=== PATIENT | female | born 1975 | race Caucasian/White ===

== ENCOUNTER 2016-11-14 11:13 | Emergency (ER) | payer MEDICAID | END 2016-11-14 16:15 | disposition home or self-care (01) | LOC: D.ER 11:13 | DX: N76.4 Abscess of vulva (principal); M54.9 Dorsalgia, unspecified; M54.5 Low back pain; I10 Essential (primary) hypertension; M19.90 Unspecified osteoarthritis, unspecified site ==

== ENCOUNTER 2017-03-06 08:16 | Emergency (ER) | payer MEDICAID | END 2017-03-06 09:56 | disposition home or self-care (01) | LOC: D.ER 08:16 | DX: H92.01 Otalgia, right ear (principal); I10 Essential (primary) hypertension; M54.5 Low back pain; M51.26 Other intervertebral disc displacement, lumbar region ==

== ENCOUNTER 2017-04-01 11:25 | Emergency (ER) | payer OTHER ==
[2017-04-01 14:07] LABS: APPEARANCE CLOUDY (CLEAR); BILIRUBIN NEGATIVE (NEGATIVE); COLOR DK YELLOW (YELLOW); GLUCOSE NEGATIVE (NEGATIVE); KETONE LARGE mg/dL (NEGATIVE); LEUKOCYTE ESTERASE 2+ (NEGATIVE); NITRITE POSITIVE (NEGATIVE); PROTEIN 2+ mg/dL (NEGATIVE); UROBILINOGEN NORMAL (NORMAL)
[2017-04-01 14:09] LABS: RED CELLS - URINE 0-5 /hpf (0-5); WHITE CELLS - URINE >50 /hpf (0-5)
[2017-04-01 14:10] LABS: BACTERIA MODERATE /hpf (NONE SEEN)
[2017-04-01 14:14] LABS: BASOPHILS 0.1 % (0-2); EOSINOPHILS 0 % (0-7); HEMATOCRIT 38.1 % (36.0-48.0); HEMOGLOBIN 12.4 g/dL (12-16); IMMATURE GRANULOCYTES 0.2 % (0-5); LYMPHOCYTES 9.3 % (15-50); MCH 30.8 pg (26.0-34.0); MCHC 32.5 g/dL (31.0-37.0); MCV 94.8 fL (80.0-100.0); MEAN PLATELET VOLUME 9.5 fL (7.4-10.4); MONOCYTES 5.3 % (2-11); NEUTROPHILS 85.1 % (40-80); PLATELET COUNT 247 10x3/uL (130-400); RBC 4.02 10x6/uL (4.00-5.40); RDW 12.4 % (11.5-14.5); WBC 9.2 10x3/uL (4.8-10.8)
[2017-04-01 14:31] LABS: ALBUMIN 3.3 g/dL (3.4-5.0); ANION GAP 14.1 mmol/L (8-16); BILIRUBIN - TOTAL 0.63 mg/dL (0.2-1.3); CALCIUM 8.2 mg/dL (8.5-10.1); CARBON DIOXIDE 26.1 mmol/L (21.0-32.0); CREATININE - SERUM 1.1 mg/dL (0.6-1.3); POTASSIUM - SERUM 3.2 mmol/L (3.5-5.1)
== END 2017-04-01 15:26 | disposition home or self-care (01) ==
LOC: D.ER 11:25
PROVIDERS: Emergency Medicine
DX: N39.0 Urinary tract infection, site not specified (principal); M54.5 Low back pain; I10 Essential (primary) hypertension

== ENCOUNTER 2017-04-02 19:52 | Emergency (ER) | payer MEDICAID | END 2017-04-02 23:28 | disposition home or self-care (01) | LOC: D.ER 19:52 | DX: N10 Acute pyelonephritis (principal); F17.200 Nicotine dependence, unspecified, uncomplicated; I10 Essential (primary) hypertension ==

== ENCOUNTER 2017-04-25 09:19 | Emergency (ER) | payer MEDICAID | END 2017-04-25 10:34 | disposition home or self-care (01) | LOC: D.ER 09:19 | DX: M25.50 Pain in unspecified joint (principal); M19.90 Unspecified osteoarthritis, unspecified site ==

== ENCOUNTER 2017-04-29 06:17 | Emergency (ER) | payer MEDICAID | END 2017-04-29 07:16 | disposition home or self-care (01) | LOC: D.ER 06:17 | DX: M79.642 Pain in left hand (principal); M79.641 Pain in right hand; F17.200 Nicotine dependence, unspecified, uncomplicated; I10 Essential (primary) hypertension ==

== ENCOUNTER → 2017-06-20 | Emergency (ER) | payer MEDICAID | END | disposition home or self-care (01) | LOC: D.ER 14:20 | DX: R51 Headache (principal); N94.6 Dysmenorrhea, unspecified; I10 Essential (primary) hypertension ==

== ENCOUNTER 2017-06-24 11:44 | Emergency (ER) | payer MEDICAID | END 2017-06-24 13:24 | disposition home or self-care (01) | LOC: D.ER 11:44 | DX: S99.922A Unspecified injury of left foot, initial encounter (principal); X58.XXXA Exposure to other specified factors, initial encounter; Y93.89 Activity, other specified; Y92.89 Other specified places as the place of occurrence of the external cause; F17.200 Nicotine dependence, unspecified, uncomplicated ==

== ENCOUNTER 2017-07-29 06:22 | Emergency (ER) | payer MEDICAID | END 2017-07-29 07:21 | disposition home or self-care (01) | LOC: D.ER 06:22 | DX: M54.5 Low back pain (principal); F17.200 Nicotine dependence, unspecified, uncomplicated ==

== ENCOUNTER 2017-08-17 09:00 | Outpatient (CLI) | payer MEDICAID | END 2017-08-17 23:59 | disposition home or self-care (01) | LOC: D.MAMMO 09:00 | DX: Z12.31 Encounter for screening mammogram for malignant neoplasm of breast (principal) ==

== ENCOUNTER 2017-09-03 07:32 | Emergency (ER) | payer MEDICAID | END 2017-09-03 09:07 | disposition home or self-care (01) | LOC: D.ER 07:32 | DX: M54.5 Low back pain (principal); F17.200 Nicotine dependence, unspecified, uncomplicated ==

== ENCOUNTER 2017-10-15 10:46 | Emergency (ER) | payer MEDICAID | END 2017-10-15 13:16 | disposition home or self-care (01) | LOC: D.ER 10:46 | DX: M54.16 Radiculopathy, lumbar region (principal); M54.5 Low back pain; F17.200 Nicotine dependence, unspecified, uncomplicated ==

== ENCOUNTER 2017-11-23 20:00 | Emergency (ER) | payer MEDICAID | END 2017-11-23 22:01 | disposition home or self-care (01) | LOC: D.ER 20:00 | DX: M51.36 Other intervertebral disc degeneration, lumbar region (principal); M54.5 Low back pain; F17.200 Nicotine dependence, unspecified, uncomplicated ==

== ENCOUNTER 2017-12-26 07:05 | Emergency (ER) | payer MEDICAID | END 2017-12-26 07:35 | disposition home or self-care (01) | LOC: D.ER 07:05 | DX: H92.01 Otalgia, right ear (principal); H66.91 Otitis media, unspecified, right ear ==

== ENCOUNTER 2018-01-12 12:14 | Emergency (ER) | payer MEDICAID | END 2018-01-12 14:27 | disposition home or self-care (01) | LOC: D.ER 12:14 | DX: M54.16 Radiculopathy, lumbar region (principal); F17.200 Nicotine dependence, unspecified, uncomplicated ==

== ENCOUNTER 2018-02-19 06:13 | Emergency (ER) | payer MEDICAID | END 2018-02-19 08:00 | disposition home or self-care (01) | LOC: D.ER 06:13 | DX: M51.36 Other intervertebral disc degeneration, lumbar region (principal); M54.5 Low back pain; M54.30 Sciatica, unspecified side; F17.200 Nicotine dependence, unspecified, uncomplicated ==

== ENCOUNTER 2018-04-26 09:17 | Emergency (ER) | payer MEDICAID ==
[~2018-04-26] VITALS: Ht 152.4 cm; Wt 79.5 kg
[2018-04-26 09:25] VITALS: Ht 152.4 cm; Wt 79.5 kg
[2018-04-26] MEDS ORDERED: NAPROSYN500 MG PO (10:22)
[2018-04-26 11:07] VITALS: BP 166/98
== END 2018-04-26 11:08 | disposition home or self-care (01) ==
LOC: D.ER 09:17
DX: M19.042 Primary osteoarthritis, left hand (principal); M19.041 Primary osteoarthritis, right hand; I10 Essential (primary) hypertension; F17.200 Nicotine dependence, unspecified, uncomplicated

== ENCOUNTER 2018-04-30 02:24 | Emergency (ER) | payer OTHER ==
[~2018-04-30] VITALS: Ht 152.4 cm; Wt 77.3 kg
[~2018-04-30 02:24] MED LIST: NAPROSYN500 MG PO
[2018-04-30 02:32] VITALS: Ht 152.4 cm; Wt 77.3 kg
[2018-04-30] MEDS ORDERED: METOPROLOL TART25 MG PO (02:38)
[2018-04-30] MEDS ORDERED: LISINOPRIL-HCTZ1 T11 PO (02:38)
[2018-04-30 02:43] LABS: BASOPHILS 0.1 % (0-2); EOSINOPHILS 0.6 % (0-7); HEMATOCRIT 41.8 % (36.0-48.0); HEMOGLOBIN 14.5 g/dL (12-16); IMMATURE GRANULOCYTES 0.6 % (0-5); LYMPHOCYTES 23.2 % (15-50); MCH 32.6 pg (26.0-34.0); MCHC 34.7 g/dL (31.0-37.0); MCV 93.9 fL (80.0-100.0); MEAN PLATELET VOLUME 9.7 fL (7.4-10.4); MONOCYTES 4.9 % (2-11); NEUTROPHILS 70.6 % (40-80); PLATELET COUNT 261 10x3/uL (130-400); RBC 4.45 10x6/uL (4.00-5.40); RDW 12.2 % (11.5-14.5); WBC 9.7 10x3/uL (4.8-10.8)
[2018-04-30 02:57] LABS: ALBUMIN 4.1 g/dL (3.4-5.0); ALKALINE PHOSPHATASE 77 U/L (46-116); ALT (SGPT) 35 U/L (10-68); CALC OSMOLALITY 280 mosm/kg (275-300); CALCIUM 9.5 mg/dL (8.5-10.1); CARBON DIOXIDE 26.6 mmol/L (21.0-32.0); CHLORIDE - SERUM 102 mmol/L (98-107); GLUCOSE 121 mg/dL (74-106); POTASSIUM - SERUM 3.9 mmol/L (3.5-5.1); PROTEIN - SERUM 8.1 g/dL (6.4-8.2); SODIUM 140 mmol/L (136-145); UREA NITROGEN 15 mg/dL (7-18); eGFR NON AFRICAN AMERICAN 64 mL/min (90-120)
[2018-04-30 03:00] LABS: APPEARANCE CLEAR (CLEAR); BILIRUBIN NEGATIVE (NEGATIVE); COLOR YELLOW (YELLOW); GLUCOSE NEGATIVE (NEGATIVE); KETONE NEGATIVE (NEGATIVE); NITRITE NEGATIVE (NEGATIVE); PROTEIN NEGATIVE (NEGATIVE); UROBILINOGEN NORMAL (NORMAL)
[2018-04-30 03:04] LABS: LIPASE 260 U/L (73-393); PRO BNP 79 pg/mL (0-125); TROPONIN-I < 0.017 ng/mL (0.000-0.060)
[2018-04-30 03:10] LABS: UDS - AMPHET NEGATIVE QUAL (NEGATIVE); UDS - BARB NEGATIVE QUAL (NEGATIVE); UDS - BENZO NEGATIVE QUAL (NEGATIVE); UDS - COCAINE NEGATIVE QUAL (NEGATIVE); UDS - OPIATE NEGATIVE QUAL (NEGATIVE); UDS - PCP NEGATIVE QUAL (NEGATIVE); UDS - THC NEGATIVE QUAL (NEGATIVE)
[2018-04-30 05:11] VITALS: BP 154/85
== END 2018-04-30 05:12 | disposition home or self-care (01) ==
LOC: D.ER 02:24
PROVIDERS: Family Medicine
DX: R07.89 Other chest pain (principal); I10 Essential (primary) hypertension

== ENCOUNTER 2018-06-24 15:00 | Emergency (ER) | payer OTHER ==
[~2018-06-24] VITALS: Ht 152.4 cm; Wt 81.8 kg
[~2018-06-24 15:00] MED LIST changes: +LISINOPRIL-HCTZ1 T11 PO; +METOPROLOL TART25 MG PO
[2018-06-24 15:03] VITALS: Ht 152.4 cm; Wt 81.8 kg
[2018-06-24] MEDS ORDERED: TORADOL10 MG PO (16:20)
[2018-06-24] MEDS ORDERED: ROBAXIN500 MG PO (16:20)
[2018-06-24 16:58] VITALS: BP 169/96
== END 2018-06-24 17:01 | disposition home or self-care (01) ==
LOC: D.ER 15:00
DX: M54.16 Radiculopathy, lumbar region (principal); M54.5 Low back pain; F17.200 Nicotine dependence, unspecified, uncomplicated

== ENCOUNTER 2018-09-10 16:45 | Emergency (ER) | payer OTHER ==
[~2018-09-10] VITALS: Ht 152.4 cm; Wt 80.9 kg
[~2018-09-10 16:45] MED LIST changes: +ROBAXIN500 MG PO; +TORADOL10 MG PO
[2018-09-10 17:03] VITALS: Ht 152.4 cm; Wt 80.9 kg
[2018-09-10] MEDS ORDERED: PRAVACHOL20 MG (17:06)
[2018-09-10] MEDS ORDERED: VOLTAREN75 MG PO (19:30)
[2018-09-10] MEDS ORDERED: ROBAXIN500 MG PO (19:30)
[2018-09-10 19:57] VITALS: BP 138/87
== END 2018-09-10 19:55 | disposition home or self-care (01) ==
LOC: D.ER 16:45
DX: S39.012A Strain of muscle, fascia and tendon of lower back, initial encounter (principal); X58.XXXA Exposure to other specified factors, initial encounter; Y93.89 Activity, other specified; Y92.019 Unspecified place in single-family (private) house as the place of occurrence of the external cause; I10 Essential (primary) hypertension; F17.200 Nicotine dependence, unspecified, uncomplicated

== ENCOUNTER 2018-10-17 12:07 | Emergency (ER) | payer SELFPAY ==
[~2018-10-17 12:07] MED LIST changes: +PRAVACHOL20 MG; +VOLTAREN75 MG PO
[2018-10-17 12:11] VITALS: Ht 152.4 cm
[2018-10-17] MEDS ORDERED: PHENERGAN25 M1 PO (15:05)
[2018-10-17] MEDS ORDERED: TORADOL10 MG PO (15:05)
[2018-10-17 16:02] VITALS: BP 155/93
== END 2018-10-17 16:03 | disposition home or self-care (01) ==
LOC: D.ER 12:07
DX: R51 Headache (principal); R11.0 Nausea; W18.30XA Fall on same level, unspecified, initial encounter; Y93.89 Activity, other specified; Y92.012 Bathroom of single-family (private) house as the place of occurrence of the external cause; I10 Essential (primary) hypertension; F17.200 Nicotine dependence, unspecified, uncomplicated

== ENCOUNTER 2019-01-23 12:58 | Emergency (ER) | payer BC ==
[~2019-01-23] VITALS: Ht 152.4 cm; Wt 81.8 kg
[~2019-01-23 12:58] MED LIST changes: +PHENERGAN25 M1 PO
[2019-01-23 13:30] VITALS: Ht 152.4 cm; Wt 81.8 kg
[2019-01-23] MEDS ORDERED: ZYLOPRIM100 MG PO (13:40)
[2019-01-23] MEDS ORDERED: BACLOFEN20 M1 PO (16:29)
[2019-01-23] MEDS ORDERED: VOLTAREN75 MG PO (16:29)
[2019-01-23] MEDS ORDERED: TALWIN NX1 TAB PO (16:29)
[2019-01-23 17:13] VITALS: BP 115/80
== END 2019-01-23 17:15 | disposition home or self-care (01) ==
LOC: D.ER 12:58
DX: M54.5 Low back pain (principal); G58.8 Other specified mononeuropathies

== ENCOUNTER 2019-10-22 11:30 | Emergency (ER) | payer BC ==
[~2019-10-22] VITALS: Ht 152.4 cm; Wt 86.4 kg
[~2019-10-22 11:30] MED LIST changes: +BACLOFEN20 M1 PO; +TALWIN NX1 TAB PO; +ZYLOPRIM100 MG PO
[2019-10-22 11:53] VITALS: Ht 152.4 cm; Wt 86.4 kg
[2019-10-22] MEDS ORDERED: HYDROCODON-ACE1 EA10 PO (16:03)
[2019-10-22 16:16] VITALS: BP 180/85
== END 2019-10-22 16:16 | disposition home or self-care (01) ==
LOC: D.ER 11:30
DX: M54.89 Other dorsalgia (principal); M51.36 Other intervertebral disc degeneration, lumbar region; I10 Essential (primary) hypertension; Z72.0 Tobacco use; W22.8XXA Striking against or struck by other objects, initial encounter; Y93.9 Activity, unspecified; Y92.512 Supermarket, store or market as the place of occurrence of the external cause

== ENCOUNTER 2020-01-18 10:35 | Emergency (ER) | payer BC ==
[~2020-01-18] VITALS: Ht 152.4 cm; Wt 78.2 kg
[~2020-01-18 10:35] MED LIST changes: +HYDROCODON-ACE1 EA10 PO
[2020-01-18 10:39] VITALS: Ht 152.4 cm; Wt 78.2 kg
[2020-01-18] MEDS ORDERED: HYDROCODON-ACE1 EAC7 PO (11:14)
[2020-01-18 19:15] VITALS: BP 134/85
== END 2020-01-18 11:50 | disposition home or self-care (01) ==
LOC: D.ER 10:35
DX: G89.29 Other chronic pain (principal); M54.5 Low back pain; I10 Essential (primary) hypertension; Z72.0 Tobacco use

== ENCOUNTER 2021-03-05 15:04 | Inpatient (IN) | payer BC ==
[~2021-03-05] VITALS: Ht 152.4 cm; Wt 88.2 kg
[2021-03-05] VITALS (11 sets, daily range): BP systolic 79–146; BP diastolic 36–98; Ht 152.4 cm; Wt 88.2 kg
[~2021-03-05 15:04] MED LIST changes: +CLONIDINE HCL0.1 MG; +COREG6.25 MG; +HYDROCODON-ACE1 EAC7 PO; +NORVASC10 MG
[2021-03-05 15:47] LABS: BASOPHILS 0.2 % (0-2); EOSINOPHILS 1.1 % (0-7); HEMATOCRIT 41.5 % (36.0-48.0); HEMOGLOBIN 13.9 g/dL (12-16); IMMATURE GRANULOCYTES 0.4 % (0-5); LYMPHOCYTE ABS# 1.66 10x3/uL (1.18-3.74); LYMPHOCYTES 13.6 % (15-50); MCH 32.8 pg (26.0-34.0); MCHC 33.5 g/dL (31.0-37.0); MCV 97.9 fL (80.0-100.0); MONOCYTES 4.8 % (2-11); NEUTROPHIL ABS# 9.74 10x3/uL (1.56-6.13); NEUTROPHILS 79.9 % (40-80); PLATELET COUNT 264 10x3/uL (130-400); RBC 4.24 10x6/uL (4.00-5.40); RDW 12.4 % (11.5-14.5); WBC 12.2 10x3/uL (4.8-10.8)
[2021-03-05 16:00] LABS: ANION GAP 13.2 mmol/L (8-16); CALCIUM 8.7 mg/dL (8.5-10.1); CARBON DIOXIDE 25.1 mmol/L (21.0-32.0); CREATININE - SERUM 1.1 mg/dL (0.6-1.3); POTASSIUM - SERUM 4.3 mmol/L (3.5-5.1)
[2021-03-05 16:05] LABS: ALBUMIN 3.5 g/dL (3.4-5.0); BILIRUBIN - TOTAL 0.28 mg/dL (0.2-1.3); MAGNESIUM - SERUM 1.8 mg/dL (1.8-2.4); PROTEIN - SERUM 7.2 g/dL (6.4-8.2)
[2021-03-05 16:35] LABS: NITRITE NEGATIVE (NEGATIVE)
[2021-03-05 16:36] LABS: BILIRUBIN NEGATIVE (NEGATIVE); HCG URINE NEGATIVE (NEGATIVE); KETONE NEGATIVE (NEGATIVE); UROBILINOGEN NORMAL mg/dL (< 2)
[2021-03-05 16:46] LABS: UDS - AMPHET NEGATIVE QUAL (NEGATIVE); UDS - BARB NEGATIVE QUAL (NEGATIVE); UDS - BENZO NEGATIVE QUAL (NEGATIVE); UDS - COCAINE NEGATIVE QUAL (NEGATIVE); UDS - OPIATE NEGATIVE QUAL (NEGATIVE); UDS - PCP NEGATIVE QUAL (NEGATIVE); UDS - THC POSITIVE QUAL (NEGATIVE)
--- NOTE | 2021-03-05 17:05 | NUR ---
PT BP TRENDING DOWN, MD AWARE, PT IS STILL ALERT AND ORIENTED, REPSONDS TO QUESTIONS APPROPRIATELY, STATES SHE IS JUST EXTREMELY SLEEPY
--- NOTE | 2021-03-05 17:39 | NUR ---
REPORT CALLED TO LUIS FERNANDO PEREZ, WITH VERBAL ACKNOWLEDGEMENT OBTAINED, WILL TRANSPORT PT IN APPROX 5 MINUTE TO FLOOR
--- NOTE | 2021-03-05 20:00 | NUR ---
REC'D REPORT AND ASSUMED CARE. INITIAL ASSESSMENT COMPLETED AND RECORDED PER FLOW SHEET. NARCAN DRIP INFUSING AT 55 ML/HR, NO SIGNS OF SEDATION. WILL MONITOR.
[2021-03-05] MEDS ORDERED: SINGULAIR10 MG (20:18)
[2021-03-05] MEDS ORDERED: LOTREL PO (20:24)
[2021-03-06] VITALS (10 sets, daily range): BP systolic 109–179; BP diastolic 65–100
--- NOTE | 2021-03-06 | NUR ---
WATCHING TV, PLAYING WITH PHONE. VS REMAIN STABLE. STATES SHE IS 'UNABLE TO SLEEP." CONT TO MONITOR.
[2021-03-06 04:32] LABS: BASOPHILS 0.1 % (0-2); HEMATOCRIT 41.3 % (36.0-48.0); HEMOGLOBIN 13.5 g/dL (12-16); IMMATURE GRANULOCYTES 0.3 % (0-5); LYMPHOCYTES 18.5 % (15-50); MCH 32.5 pg (26.0-34.0); MCHC 32.7 g/dL (31.0-37.0); MCV 99.3 fL (80.0-100.0); MEAN PLATELET VOLUME 10.2 fL (7.4-10.4); MONOCYTES 5.7 % (2-11); NEUTROPHIL ABS# 8.83 10x3/uL (1.56-6.13); NEUTROPHILS 74.4 % (40-80); PLATELET COUNT 266 10x3/uL (130-400); RBC 4.16 10x6/uL (4.00-5.40); RDW 12.5 % (11.5-14.5); WBC 11.9 10x3/uL (4.8-10.8)
[2021-03-06 04:48] LABS: ALBUMIN 3.4 g/dL (3.4-5.0); ANION GAP 13.4 mmol/L (8-16); BILIRUBIN - TOTAL 0.55 mg/dL (0.2-1.3); CALCIUM 8.3 mg/dL (8.5-10.1); CARBON DIOXIDE 23.7 mmol/L (21.0-32.0); CREATININE - SERUM 0.9 mg/dL (0.6-1.3); MAGNESIUM - SERUM 1.8 mg/dL (1.8-2.4); PHOSPHOROUS 3.2 mg/dL (2.5-4.9); POTASSIUM - SERUM 4.1 mmol/L (3.5-5.1); PROTEIN - SERUM 7.1 g/dL (6.4-8.2)
--- NOTE | 2021-03-06 06:00 | NUR ---
R AC PIV NOT FLUSHING. IV DC'D, CATHETER INTACT AND DSG APPLIED. 'STARVING TO ', TOLD HER BREAKFAST WOULD BE HERE SOON BUT HAD BROUGHT A BREAKFAST FROM [place], WAS BROUGHT IN BY AN EMPLOYEE.
--- NOTE | 2021-03-06 07:33 | NUR ---
AWAKE AND ALERT SKIN WARM AND DRY ABLE TO VERBALIZED WHAT HAPPEN TO HER. STATES SHE IS HUNGRY. LEFT UPPER ARM SWOLLWN, IV STOPPED. NO DISTRESS. MONITOR SR.
--- NOTE | 2021-03-06 12:00 | NUR ---
BLOOD PRESSURE 166/70 AFTER BLOOD PRESSURE MEDS GIVEN. PATIENT DISCHARGED HOME WITH .
== END 2021-03-06 12:11 | disposition home or self-care (01) | DRG 917 ==
LOC: D.ER 15:04 → D.ICU 15:17 → OBSVTIME 15:17 → D.ICU 22:43
PROVIDERS: Family Medicine; ADMIT Emergency Medicine; ATTEND Emergency Medicine
DX: T40.2X1A Poisoning by other opioids, accidental (unintentional), initial encounter (principal); R09.2 Respiratory arrest; I10 Essential (primary) hypertension; F15.10 Other stimulant abuse, uncomplicated